=== PATIENT | female | born 1945 ===

== ENCOUNTER 2024-11-29 09:24 | Outpatient (CLI) | payer MEDICARE, BC | END 2024-11-29 09:25 | disposition home or self-care (01) | LOC: CSHWCC 09:24 | PROVIDERS: ATTEND Nurse Practitioner Family | DX: L89.892 Pressure ulcer of other site, stage 2 (principal) | CPT/HCPCS: 97597; G0463; 99213 ==

== ENCOUNTER 2024-12-07 12:44 | Outpatient (CLI) | payer MEDICARE, BC | END 2024-12-07 12:45 | disposition home or self-care (01) | LOC: CSHWCC 12:44 | PROVIDERS: ATTEND Nurse Practitioner Family | DX: L89.892 Pressure ulcer of other site, stage 2 (principal) | CPT/HCPCS: 97597 ==

== ENCOUNTER 2024-12-20 14:21 | Outpatient (CLI) | payer MEDICARE, BC | END 2024-12-20 14:22 | disposition home or self-care (01) | LOC: CSHWCC 14:21 | PROVIDERS: ATTEND Nurse Practitioner Family | DX: L89.892 Pressure ulcer of other site, stage 2 (principal) | CPT/HCPCS: 97597 ==